=== PATIENT | female | born 1925 | race Two or more races ===

== ENCOUNTER 2017-06-02 19:36 | Emergency (ER) | payer OTHER ==
[~2017-06-02] VITALS: Ht 149.9 cm; Wt 47.2 kg
[~2017-06-02 19:36] MED LIST: ADULT ASPIRIN81 MG; INTESTINEX1 CA1 PO; INTESTINEX1 CAP PO; MEDROL4 MG PO; ULTRACET PO
[2017-06-03] MEDS ORDERED: MIRALAX510 GM PO (07:13)
== END 2017-06-03 08:15 | disposition home or self-care (01) ==
LOC: ER 19:36
DX: R53.1 Weakness (principal); K59.00 Constipation, unspecified